=== PATIENT | male | born 1950 | race Caucasian/White ===

== ENCOUNTER 2021-06-10 10:03 | Observation (INO) | payer MEDICARE, SELFPAY ==
[2021-06-10] VITALS (24 sets, daily range): BP systolic 127–171; BP diastolic 80–97; PULSE 87–106; RESP 16–32; TEMP 36.4–37.1; O2SAT 96–98
--- NOTE | 2021-06-10 10:00 | RT.EKG_ITS ---
APPROVED REPORT Exam: Resting ECG Reason for Exam: slurred speech Patient Location: E HR:102 bpm ECG Measurements Heart Rate 102 AXIS AL 152 P 45 QRSd 87 QRS -6 QT 343 T 39 QTc 447 Conclusion Sinus tachycardia. No ST elevation
--- NOTE | 2021-06-10 10:15 | DI.CT_ITS ---
Exam(s) CT HEAD - STROKE PROTOCOL EXAM: CT HEAD - STROKE PROTOCOL CLINICAL HISTORY: slurred speech. TECHNIQUE: Imaging Protocol: Axial computed tomography images with coronal and sagittal reformatted images were created and reviewed COMPARISON: No exams were available for comparison FINDINGS: Ventricles and Extra axial spaces: Normal in size and morphology for the patient's age. Hemorrhage: None. Cerebral parenchyma: Normal. Midline shift: None. Brainstem/Cerebellum: Normal. Calvarium: Normal. Visualized Paranasal sinuses/Mastoids: Clear. Soft Tissues: Unremarkable. IMPRESSION: No acute intracranial process. RADIATION DOSE DELIVERED: 846.35mGy.cm Total DLP DATA REPOSITORY: All CT scans at this facility are submitted to the National Radiology Data Registry (NRDR) Dose Index Registry (DIR) with the [employer] (ACR). RADIATION OPTIMIZATION: All CT scans at this facility use at least one of these dose optimization te chniques: automated exposure control; mA and/or kV adjustment per patient size (includes targeted exa ms where dose is matched to clinical indication); or iterative reconstruction.
--- NOTE | 2021-06-10 10:15 | DI.RAD_ITS ---
Exam(s) XR CHEST 2V PA LATERAL EXAM: XR CHEST 2V PA LATERAL CLINICAL HISTORY: slurred speech TECHNIQUE: 2D digital imaging was performed. COMPARISON: No exams were available for comparison FINDINGS: MEDIASTINUM: Normal. HEART: Normal. PULMONARY VASCULATURE: Normal. LUNGS: Linear scarring or atelectasis is seen in the right lung base. The lungs are otherwise clear. PLEURAL SPACE: No pleural effusion or pneumothorax. BONE:Within normal limits for the patient's age. Status post ACDF in the lower cervical spine. OTHER FINDINGS:There is elevation of the right hemidiaphragm. IMPRESSION: No acute pulmonary findings. DATA REPOSITORY: RADIATION DOSE DELIVERED:
--- NOTE | 2021-06-10 10:22 | ED.GENADUL_ITS ---
Discharge Plan Disposition Patient Disposition: HOME Condition: Stable Discharge Details Clinical Impression: TIA (transient ischemic attack) Primary Care Provider: Unknown,Unknown ED Provider: Mario Purdy Home Meds and New Rx's Prescriptions: No Action omeprazole 40 mg Capsule,Delayed Release(Dr/Ec) 40 mg PO DAILY RF: 0 atorvastatin 10 mg Tablet 10 mg PO DAILY RF: 0 amlodipine-benazepril 5-20 mg Capsule 1 cap PO DAILY RF: 0 Medical Decision Making This is a 70-year-old male with history of hypertension. He lives in [place] and is visiting family in [place]. He notes slurred speech and word finding this morning associated with feeling confused while brushing his teeth and shaving. There was no clumsiness, no focal motor weakness. His family states he has prestranding subtle right facial droop as well as right upper extremity biceps rupture causing discrete right upper extremity weakness. His exam given these prestanding findings is without significant focal deficit. He is hypertensive 171/90 and reports positive symptoms concerning for TIA at home this morning. IV access established, patient placed in a community organizer, chest x-ray, EKG, CT scan of the head. CT and CTA are unremarkable for acute findings, see formal report. Patient remains with very discretely slurred speech but otherwise no focal findings. Given his risk factors of hypercholesterolemia, hypertension, age, I do feel he merits criteria for admission for further management and work-up of TIA. Discussed with the patient and his . HPI General Mode of arrival: ambulatory . Date/Time Provider Initiated Documentation: 06/10/21 10:06 . Limitations to Documentation: no limitations . Information obtained by: patient and family . History of Present Illness 70 year old M presents to the emergency department with the chief complaint of Slurred speech and word finding this morning, described as mild, and is localized to the head and mouth. Patient started experiencing this hour(s) and it has been intermittent. No relieving factors improve symptom(s), No exacerbating factors reported . Patient notes other ([place] confused this morning); denies chest pain, diaphoresis, fever/chills, headaches, nausea/vomiting and weakness. Related Data Home Medications Medication Instructions Recorded Confirmed amlodipine-benazepril 1 cap PO DAILY 06/10/21 06/10/21 atorvastatin 10 mg PO DAILY 06/10/21 06/10/21 omeprazole 40 mg PO DAILY 06/10/21 06/10/21 Allergies Allergy/AdvReac Type Severity Reaction Status Date / Time No Known Allergies Allergy Unverified 06/10/21 10:18 General Stated Complaint: CVA/TIA JUS: 2 Review of Systems Narrative: No fall or headache. No chest pain or difficulty breathing. No clumsiness. No difficulty with gait. Feels slight slurred speech and confusion this morning, denies clumsiness. 8's reviewed and otherwise negative [facility] Social History Smoking/Tobacco Use Status: Former Tobacco Use Smoking risk assessment performed?: Yes Alcohol Intake: current Alcohol Intake frequency: holidays/special occasions only Drug use: Never Substance use type: does not use Details: has not smoked in 20 years Do you feel safe at home: Yes Do you feel safe in your relationship?: Yes Exam Narrative Exam Narrative: GEN: awake, alert, oriented 3. Pleasant, well groomed, interactive. HEAD: Normocephalic, atraumatic ENT: Mucous membranes moist, oropharynx unremarkable, External ear exam unremarkable, slight right facial droop-family states normal EYES: PERRL, EOMI NECK: Full ROM, no BERNICE, no menigismus CHEST/RESP: Nontender, clear to auscultation bilateral, no wheeze/rhonchi/rales CARDIOVASCULAR: RRR, no murmur, rub dyllan. 2+ Rad pulse bilateral ABDOMEN: Soft, nontender, no mass. +Bowel sounds EXT: Full ROM, no edema, no rash, right bicep atrophy, right upper extremity flexion 5-/5, otherwise 5 out of 5 throughout the upper and lower extremity. Neuro: Grossly normal neurologic exam, conversant, interactive. Discrete right facial droop which family states is prestanding. Cranial nerves II through XII otherwise intact. Psych: Speech fluent, thoughts congruent, affect normal Course Vital Signs Vital signs: Vital Signs Temperature 36.7 C 06/10/21 10:10 Pulse 104 H 06/10/21 10:10 Respiratory Rate 24 06/10/21 10:10 Blood Pressure 171/90 H 06/10/21 10:10 Pulse Oximetry 98 06/10/21 10:10 Temperature 36.7 C 06/10/21 10:10 Temperature Source Skin 06/10/21 10:10 Pulse 104 H 06/10/21 10:10 Respiratory Rate 23 06/10/21 10:14 Respiratory Effort 06/10/21 10:18 Blood Pressure 171/90 H 06/10/21 10:10 Pulse Oximetry 98 06/10/21 10:10 Oxygen Delivery Method Room Air 06/10/21 10:10 Oxygen Flow Rate 0 06/10/21 10:10 Pain Level 0 06/10/21 10:10
--- NOTE | 2021-06-10 10:30 | DI.CT_ITS ---
Exam(s) CT BRAIN NECK CTA EXAM: CT BRAIN NECK CTA CLINICAL HISTORY: Slurred speech. TECHNIQUE: Imaging Protocol: Axial CT angiography was performed with multi-slice acquisition and mu lti-planar and/or 3D reconstructions. CONTRAST MATERIAL: Intravenous: Omnipaque 350 Contrast volume:85 mL COMPARISON: CT CT HEAD - STROKE PROTOCOL from 06/10/2021 FINDINGS: CT Head w: Ventricles and Extra axial spaces: Normal in size and morphology for the patient's age. Hemorrhage: None. Cerebral parenchyma: Normal. Midline shift: None. Brainstem/Cerebellum: Normal. Calvarium: Normal. Visualized Paranasal sinuses/Mastoids: Clear. Soft Tissues: Unremarkable. Enhancement: Unremarkable. CTA Neck W: Common Carotid: Right: No dissection, occlusion or significant stenosis. There is mild atherosclerosis at the distal common carotid artery. Left: No dissection, occlusion or significant stenosis. External Carotid: Right: No occlusion or significant stenosis. Left: No occlusion or significant stenosis. There is atherosclerosis at the origin of the left exter nal carotid artery. Internal Carotid: Right: No dissection, occlusion or significant stenosis. Left: No dissection, occlusion or significant stenosis. Vertebral Artery: Right: No dissection, occlusion or significant stenosis. Left: No dissection, occlusion or significant stenosis. Lung Apices: Normal. Bones: The patient status post anterior cervical fusion from C5 through C7. Degenerative changes are seen in the spine. There is straightening of the normal cervical lordosis. Soft Tissues: Normal. The thyroid gland is grossly unremarkable. CTA Brain W: Internal Carotid Arteries: Petrous: Normal. Cavernous: Normal. Cerebral: Normal. Anterior Cerebral Arteries: Right: No aneurysm, occlusion or significant stenosis. Left: No aneurysm, occlusion or significant stenosis. Middle Cerebral Arteries: Right: No aneurysm, occlusion or significant stenosis. Left: No aneurysm, occlusion or significant stenosis. Posterior cerebral Arteries: Right: No aneurysm, occlusion or significant stenosis. The right posterior cerebral artery arises fr om the right posterior communicating artery. This is a normal variant. Left: No aneurysm, occlusion or significant stenosis. Vertebral Arteries: Right: No aneurysm, occlusion or significant stenosis. Left: No aneurysm, occlusion or significant stenosis. Basilar Artery: No aneurysm, occlusion or significant stenosis. IMPRESSION: 1. No large vessel stenosis or occlusion on the CT angiography of the head. 2. Unremarkable contrast CT Head. 3. No evidence of significant stenosis or occlusion on the CT angiography of the neck. RADIATION DOSE DELIVERED: 1,246.34mGy.cm Total DLP DATA REPOSITORY: All CT scans at this facility are submitted to the National Radiology Data Registry (NRDR) Dose Index Registry (DIR) with the [employer] (ACR). RADIATION OPTIMIZATION: All CT scans at this facility use at least one of these dose optimization te chniques: automated exposure control; mA and/or kV adjustment per patient size (includes targeted exa ms where dose is matched to clinical indication); or iterative reconstruction.
[2021-06-10 10:33] LABS: Abs Immature Grans 0.02 10^3/uL (0.0-0.06); Absolute Basophil Count 0.04 10^3/uL (0.0-0.2); Absolute Eosinophil Count 0.04 10^3/uL (0.0-0.7); Absolute Lymphocyte Count 1.43 10^3/uL (1.2-3.4); Basophils % 0.4; Eosinophils % 0.4; HCT 46.2 % (40.0-50.0); HGB 15.5 g/dL (13.5-17.5); Immature Grans % 0.2; Lymphocytes % 15.5; MCH 29.5 pg (27.0-33.0); MCHC 33.5 % (32.0-36.0); MPV 11.5 fL (8.0-11.0); Monocytes % 6.5; Nucleated RBC 0 %; Platelet Count 180 10^3/uL (130-400); RBC 5.25 10^6/uL (4.36-5.78); RDW-SD 38.5 fL; WBC 9.23 10^3/uL (4.4-10.8)
[2021-06-10 10:42] LABS: Bilirubin Negative (Negative); Blood Negative (Negative); Clarity Clear (Clear); Glucose Negative (Negative); Ketones Negative (Negative); Leukocyte Esterase Negative (Negative); Nitrite Negative (Negative); Urobilinogen 0.2 EU/dL (Up TO 0.2)
[2021-06-10 10:49] LABS: Magnesium 1.7 mg/dL (1.8-2.4)
[2021-06-10 10:52] LABS: ALT 43 U/L (16-63); AST 41 U/L (15-37); Albumin 4.5 g/dL (3.4-5.0); Alkaline Phosphatase 53 U/L (46-116); Anion Gap 7.6 mmol/L (3-11); BUN 28 mg/dL (7-18); Bilirubin, Total 0.7 mg/dL (0.2-1.0); CO2 29.4 mmol/L (21.0-32.0); CREATININE 1.2 mg/dL (0.70-1.30); Calcium 8.6 mg/dL (8.5-10.1); Chloride 107 mmol/L (98-107); Glucose 114 mg/dL (74-106); Potassium 4.2 mmol/L (3.5-5.1); Sodium 144 mmol/L (136-145); Total Protein 7.4 g/dL (6.4-8.2)
--- NOTE | 2021-06-10 10:52 | DI.VRAD_ITS ---
PROCEDURE INFORMATION: Exam: CT Head Without Contrast Exam date and time: 06/10/2021 10:22 AM Age: 70 years old Clinical indication: Other: Slurred speech TECHNIQUE: Imaging protocol: Computed tomography of the head without contrast. COMPARISON: No relevant prior studies available. FINDINGS: Brain: Normal. No hemorrhage. Unremarkable white matter. No mass effect. Cerebral ventricles: No ventriculomegaly. Paranasal sinuses: Visualized sinuses are unremarkable. No fluid levels. Mastoid air cells: Visualized mastoid air cells are well aerated. Bones/joints: Unremarkable. No acute fracture. Soft tissues: Unremarkable. IMPRESSION: No acute intracranial abnormality. Dictated and Authenticated by: Shirley Easley MD. Ordering:MIL Martin MD
[2021-06-10 10:54] LABS: Troponin I < 0.05 ng/mL (<0.06)
[2021-06-10] MEDS: Omnipaque 350 MG/ML 100 ML BTL IJ (11:07)
--- NOTE | 2021-06-10 11:10 | DI.VRAD_ITS ---
PROCEDURE INFORMATION: Exam: XR Chest Exam date and time: 06/10/2021 10:22 AM Age: 70 years old Clinical indication: Other: Slurred speech TECHNIQUE: Imaging protocol: XR of the chest. Views: 2 views. COMPARISON: CT BRAIN NECK CTA 06/10/2021 10:50 AM FINDINGS: Lungs: Right basilar atelectasis. Pleural spaces: Unremarkable. No pleural effusion. No pneumothorax. Heart/Mediastinum: Unremarkable. No cardiomegaly. Vasculature: Aorta is tortuous. Diaphragm: Elevation of the right hemidiaphragm. Bones/joints: Status post lower cervical spine fusion. Levoscoliosis of the thoracic spine IMPRESSION: No evidence of acute process. Dictated and Authenticated by: Shirley Easley MD. Ordering:MIL Martin MD
--- NOTE | 2021-06-10 11:18 | DI.VRAD_ITS ---
PROCEDURE INFORMATION: Exam: CT Angiography Head With Contrast, Arteriography Exam date and time: 06/10/2021 10:41 AM Age: 70 years old Clinical indication: Other: Slurred speech TECHNIQUE: Imaging protocol: Computed tomography angiography of the head with contrast. Exam focused on the arteries. 3D rendering (Not supervised by radiologist): MIP and/or 3D reconstructed images were created by the technologist. Contrast material: OMNIPAQUE 350; Contrast volume: 85 ml; Contrast route: INTRAVENOUS (IV); COMPARISON: CT HEAD - STROKE PROTOCOL 06/10/2021 10:37 AM FINDINGS: ANTERIOR CIRCULATION: Right internal carotid artery: Unremarkable. Intracranial segment is patent with no significant stenosis. No aneurysm. Right middle cerebral artery: Unremarkable. No occlusion or significant stenosis. No aneurysm. Right anterior cerebral artery: Unremarkable. No occlusion or significant stenosis. No aneurysm. Left internal carotid artery: Unremarkable. Intracranial segment is patent with no significant stenosis. No aneurysm. Left middle cerebral artery: Unremarkable. No occlusion or significant stenosis. No aneurysm. Left anterior cerebral artery: Unremarkable. No occlusion or significant stenosis. No aneurysm. POSTERIOR CIRCULATION: Right vertebral artery: Unremarkable. No occlusion or significant stenosis. No aneurysm. Left vertebral artery: Unremarkable. No occlusion or significant stenosis. No aneurysm. Basilar artery: Unremarkable. No occlusion or significant stenosis. No aneurysm. Right posterior cerebral artery: Unremarkable. No occlusion or significant stenosis. No aneurysm. Left posterior cerebral artery: Unremarkable. No occlusion or significant stenosis. No aneurysm. Brain: No definite mass, mass effect, or midline shift. Cerebral ventricles: No ventriculomegaly. Bones/joints: Unremarkable. No acute fracture. Soft tissues: Unremarkable. IMPRESSION: No large vessel stenosis or occlusion. PROCEDURE INFORMATION: Exam: CT Angiography Neck With Contrast Exam date and time: 06/10/2021 10:41 AM Age: 70 years old Clinical indication: Other: Slurred speech TECHNIQUE: Imaging protocol: Computed tomography angiography of the neck with contrast. 3D rendering (Not supervised by radiologist): MIP and/or 3D reconstructed images were created by the technologist. Radiation optimization: All CT scans at this facility use at least one of these dose optimization techniques: automated exposure control; mA and/or kV adjustment per patient size (includes targeted exams where dose is matched to clinical indication); or iterative reconstruction. Contrast material: OMNIPAQUE 350; Contrast volume: 85 ml; Contrast route: INTRAVENOUS (IV); COMPARISON: CT HEAD - STROKE PROTOCOL 06/10/2021 10:37 AM FINDINGS: Right common carotid artery: No stenosis. No dissection or occlusion. Right internal carotid artery: No stenosis of the extracranial segment. No dissection or occlusion. Right external carotid artery: No occlusion or stenosis of the origin. Left common carotid artery: No stenosis. No dissection or occlusion. Left internal carotid artery: No stenosis of the extracranial segment. No dissection or occlusion. Left external carotid artery: No occlusion or stenosis of the origin. Right vertebral artery: No stenosis. No dissection or occlusion. Left vertebral artery: No stenosis. No dissection or occlusion. Soft tissues: Normal. No significant soft tissue swelling. Bones/joints: Status post lower cervical spine fusion IMPRESSION: Less than 50% stenosis within the internal carotid arteries bilaterally REFERENCES: NASCET CRITERIA. The degree of internal carotid artery stenosis is based on NASCET criteria. Normal is no stenosis. Mild is less than 50% stenosis. Moderate is 50-69% stenosis. Severe is 70% to 99% stenosis. Total occlusion is no detectable patent lumen. Dictated and Authenticated by: Shirley Easley MD. Ordering:MIL Martin MD
[2021-06-10] MEDS: Aspirin 325 MG TAB PO (11:46)
[2021-06-10 12:05] LABS: Source Nasal/Nares
[2021-06-10] MEDS: Normal Saline 1,000 ML 125 ML IV ×2 (12:53→21:20)
[2021-06-10] MEDS: Enoxaparin 40 MG/0.4 ML SYR SC (12:54)
[2021-06-10 13:09] LABS: COVID-19 PCR Negative (Negative)
[2021-06-10 14:02] LABS: Troponin I < 0.05 ng/mL (<0.06)
[2021-06-10] MEDS: Magnesium Oxide 400 MG TAB PO (14:45)
--- NOTE | 2021-06-10 15:04 | HPE_ITS ---
Date of service: 06/10/21 Time of Service: 15:04 Assessment and Plan Assessment and plan (1) TIA (transient ischemic attack): Start date: 06/10/21 Start time: 15:13 Status: Acute Assessment and plan: Patient does have some slurred speech otherwise all other sx have resolved Will check lipid panel, A1C, MRI for tomorrow Echo with bubble study neuro consult telemetry not currently on asa will start 81 mg daily received 325 in ED (2) Hyperlipidemia: Start date: 06/10/21 Start time: 15:14 Status: Acute Assessment and plan: as above Qualifiers: Hyperlipidemia type: unspecified Qualified Code(s): E78.5 - Hyperlipidemia, unspecified (3) DVT prophylaxis: Start date: 06/10/21 Start time: 15:15 Status: Acute Assessment and plan: enoxaparin (4) Discharge planning issues: Start date: 06/10/21 Start time: 15:15 Status: Acute Assessment and plan: home when medically ready, do not anticipate any services discussed with Dr. Sr History of Present Illness History of Present Illness Chief Complaint: TIA Narrative: 70 y.o male with PMH of HTN, HLD, GERD presented to the ED after having slurred speech and word finding issues while brushing his teeth around approx. 730 this am prompting him to come to the ED. Labs in the ED unremarkable except mag 1.7 repleted with oral supplementation. Urine negative. Brain CT negative for acute findings, chest xray negative, head/neck CTA negative for large vessel stenosis or occlusion. He was asked to be admitted to hospitalist group for further management. He will be admitted to m/[facility] obs telemetery. Lipid panel, A1c, cbc, bmp, mag for am. Echo with bubble study, MRI and Neuro consult placed. Will do neuro checks every 4 hours. At this time he does still have slurred speech other than that all other sx have resolved. He did receive 325 asa in ED, currently on a statin increased to 80 mg. will continue asa 81 mg daily as he was not on one at home. Denies Cp, SOB, N/v/D. Review of Systems All systems reviewed & are unremarkable except as noted in HPI and below PFSH Medical History HTN (hypertension) Hyperlipidemia Social History Smoking/Tobacco Use Status: Former Tobacco Use Smoking risk assessment performed?: Yes Alcohol Intake: current Alcohol Intake frequency: holidays/special occasions only Drug use: Never Substance use type: does not use Details: has not smoked in 20 years Do you feel safe at home: Yes Do you feel safe in your relationship?: Yes Meds Allergies and Home Medications Allergies Allergy/AdvReac Type Severity Reaction Status Date / Time No Known Allergies Allergy Unverified 06/10/21 10:18 Home Medications Medication Instructions Recorded Confirmed Type amlodipine-benazepril 1 cap PO DAILY 06/10/21 06/10/21 History atorvastatin 10 mg PO DAILY 06/10/21 06/10/21 History omeprazole 40 mg PO DAILY 06/10/21 06/10/21 History Exam Const General: cooperative, comfortable and no acute distress Nutritional Appearance: obese Orientation: alert, awake and oriented x3 Eyes Eyelids: eyelids normal Pupils: PERRL EOM: EOM intact bilaterally Neck Neck: normal visual inspection and no JVD Lymphatic: no lymphadenopathy noted Resp Effort & Inspection: normal respiratory effort Auscultation: clear to auscultation bilaterally Cardio Jugular venous pressure: no JVD Rhythm: regular rhythm Heart Sounds: S1 normal GI Auscultation: normal bowel sounds General: No CVA tenderness and deferred Skin General skin exam: no rashes or lesions noted Neuro General: patient alert, patient awake and patient oriented x3 Cognition: normal cognition Speech: abnormal speech and other (slurred) Gait: normal gait Extrem General: normal to inspection, full ROM and no clubbing, cyanosis or edema Results Labs Result diagrams: 06/10/21 10:20 06/10/21 10:20 Labs: Laboratory Results - last 24 hr 06/10/21 06/10/21 06/10/21 10:20 10:20 10:20 WBC 9.23 RBC 5.25 Hgb 15.5 Hct 46.2 MCV 88.0 MCH 29.5 MCHC 33.5 RDW 12.0 Plt Count 180 MPV 11.5 H Immature Gran % 0.2 Neutrophils % 77.0 Lymphocytes % 15.5 Monocytes % 6.5 Eosinophils % 0.4 Basophils % 0.4 Nucleated RBC % 0 Absolute Neutrophils 7.10 H Absolute Lymphocytes 1.43 Absolute Monocytes 0.60 Absolute Eosinophils 0.04 Absolute Basophils 0.04 Sodium 144 Potassium 4.2 Chloride 107 Carbon Dioxide 29.4 Anion Gap 7.6 BUN 28 H Creatinine 1.2 Estimated GFR/1.73 m2 >= 60.00 Glucose 114 H Calcium 8.6 Magnesium 1.7 L Total Bilirubin 0.7 AST 41 H ALT 43 Alkaline Phosphatase 53 Troponin I < 0.05 Total Protein 7.4 Albumin 4.5 Urine Color Urine Clarity Urine pH Ur Specific [place] Urine Protein Urine Ketones Urine Blood Urine Nitrite Urine Bilirubin Urine Urobilinogen Ur Leukocyte Esterase Urine Glucose COVID-19 Source SARS-CoV-2 (PCR) 06/10/21 06/10/21 06/10/21 10:33 12:00 13:33 WBC RBC Hgb Hct MCV MCH MCHC RDW Plt Count MPV Immature Gran % Neutrophils % Lymphocytes % Monocytes % Eosinophils % Basophils % Nucleated RBC % Absolute Neutrophils Absolute Lymphocytes Absolute Monocytes Absolute Eosinophils Absolute Basophils Sodium Potassium Chloride Carbon Dioxide Anion Gap BUN Creatinine Estimated GFR/1.73 m2 Glucose Calcium Magnesium Total Bilirubin AST ALT Alkaline Phosphatase Troponin I < 0.05 Total Protein Albumin Urine Color Yellow Urine Clarity Clear Urine pH 6.0 Ur Specific [place] 1.010 Urine Protein Negative Urine Ketones Negative Urine Blood Negative Urine Nitrite Negative Urine Bilirubin Negative Urine Urobilinogen 0.2 Ur Leukocyte Esterase Negative Urine Glucose Negative COVID-19 Source Nasal/Nares SARS-CoV-2 (PCR) Negative Last Vital Signs Temp 36.6 C 06/10/21 12:44 Pulse 103 H 06/10/21 13:46 Resp 18 06/10/21 12:44 BP 157/80 H 06/10/21 12:44 Pulse Ox 98 06/10/21 12:44
[2021-06-10] MEDS: Atorvastatin 40 MG TAB 80 MG PO (20:41)
[2021-06-11 03:36] VITALS: PULSE 87
[2021-06-11] MEDS: Normal Saline 1,000 ML 125 ML IV (05:30)
[2021-06-11 05:32] VITALS: BP 154/89; PULSE 89; RESP 18; TEMP 37.2; O2SAT 91
[2021-06-11] MEDS: Acetaminophen 325 MG TAB 650 MG PO (05:43)
[2021-06-11 06:59] LABS: Abs Immature Grans 0.01 10^3/uL (0.0-0.06); Absolute Basophil Count 0.04 10^3/uL (0.0-0.2); Absolute Eosinophil Count 0.03 10^3/uL (0.0-0.7); Absolute Lymphocyte Count 1.44 10^3/uL (1.2-3.4); Absolute Neutrophil Count 5.67 10^3/uL (1.2-6.7); Basophils % 0.5; Eosinophils % 0.4; HCT 44.3 % (40.0-50.0); HGB 14.5 g/dL (13.5-17.5); Immature Grans % 0.1; Lymphocytes % 18.7; MCH 28.9 pg (27.0-33.0); MCHC 32.7 % (32.0-36.0); MCV 88.2 fL (80-95); MPV 11.5 fL (8.0-11.0); Monocytes % 6.5; Neutrophils % 73.8; Nucleated RBC 0 %; Platelet Count 169 10^3/uL (130-400); RBC 5.02 10^6/uL (4.36-5.78); RDW-SD 38.5 fL; WBC 7.69 10^3/uL (4.4-10.8)
[2021-06-11 07:00] VITALS: PULSE 87
[2021-06-11 07:16] LABS: Magnesium 1.8 mg/dL (1.8-2.4)
[2021-06-11 07:17] LABS: Anion Gap 10.8 mmol/L (3-11); BUN 19 mg/dL (7-18); CO2 27.2 mmol/L (21.0-32.0); CREATININE 1.2 mg/dL (0.70-1.30); Calcium 8.2 mg/dL (8.5-10.1); Calculated LDL 57 mg/dL (<100); Chloride 107 mmol/L (98-107); Cholesterol 116 mg/dL (<200); Glucose 112 mg/dL (74-106); HDL Cholesterol 36 mg/dL (40-60); Potassium 4.1 mmol/L (3.5-5.1); Sodium 145 mmol/L (136-145); Triglyceride 119 mg/dL (<150)
[2021-06-11 07:43] LABS: Hemoglobin A1C 5.6 % (<5.7)
[2021-06-11] MEDS: Aspirin 81 MG CHEW PO (08:40)
[2021-06-11] MEDS: Magnesium Chloride 64 MG TABCR PO (08:40)
[2021-06-11] MEDS: Omeprazole 20 MG CAPCR 40 MG PO (08:41)
[2021-06-11 08:44] VITALS: BP 157/90; PULSE 102; RESP 18; TEMP 36.8; O2SAT 96
--- NOTE | 2021-06-11 10:00 | DI.US_ITS ---
APPROVED REPORT EXAM: Comprehensive 2D, Doppler, and color-flow Echocardiogram Patient Location: In-Patient Room/Bed: [facility] Magnetizer: Jennie Patino RDCS (AE) Indications: TIA Echo Enhancing Agent Indication: Rule out Shunt Agent(s) / Amount(s) Used: Agitated Saline 24.0 cc Other Information Study Quality: Adequate Conclusion Left Ventricle : The left ventricle is normal size. The left ventricular systolic function is normal. The left ventricular ejection fraction is within the normal range. There is normal left ventricular wall thickness. There is normal LV segmental wall motion. The left ventricular diastolic function is normal. LVEF is 57%. Right Ventricle : The right ventricle is normal size. The right ventricular systolic function is norm al. Atria : The left atrium size is normal. The interatrial septum is intact with no evidence for an atri al septal defect. The right atrium size is normal. Aortic Valve : The aortic valve is normal in structure. Aortic valve is trileaflet. Trace aortic regu rgitation. There is no aortic valvular stenosis. Mitral Valve : The mitral valve is normal in structure. Trace mitral regurgitation. No evidence of mi tral valve stenosis. Great Vessels : The aortic root is normal in size. The ascending aorta is normal in size. Aortic arch is not well visualized. IVC is normal in size and collapses >50% with inspiration. Please see remainder of study for further details. Wall motion Left Ventricle The left ventricle is normal size. The left ventricular systolic function is normal. The left ventric ular ejection fraction is within the normal range. There is normal left ventricular wall thickness. T here is normal LV segmental wall motion. The left ventricular diastolic function is normal. There is no ventricular septal defect visualized. LVEF is 57%. Right Ventricle The right ventricle is normal size. The right ventricular systolic function is normal. Atria The left atrium size is normal. The right atrium size is normal. The interatrial septum is intact wit h no evidence for an atrial septal defect. Aortic Valve The aortic valve is normal in structure. Aortic valve is trileaflet. There is no aortic valvular sten osis. Trace aortic regurgitation. Mitral Valve The mitral valve is normal in structure. No evidence of mitral valve stenosis. Trace mitral regurgita tion. Tricuspid Valve The tricuspid valve is normal in structure. There is no tricuspid valve stenosis. Trace tricuspid reg urgitation. Unable to assess PA pressure. Pulmonic Valve The pulmonary valve is normal in structure. There is no pulmonic valvular stenosis. There is no pulmo [place]incoln valvular regurgitation. Great Vessels The aortic root is normal in size. The ascending aorta is normal in size. Aortic arch is not well vis ualized. IVC is normal in size and collapses >50% with inspiration. Pericardium There is no pericardial effusion. 2D Dimensions IVSD d PLAX 1.02 cm M: 0.6-1.2 LV Vol A2C d MOD 61.8 mL LVPW d PLAX 1.03 cm M: 0.6 - 1.2 LV Vol A4C d MOD 58.0 mL LVID d PLAX 4.23 cm M: 4.2 - 5.8 LA vol/ BSA A2C s A-L 12.7 mL/m2 LVDs 2.85 cm M: 2.5 - 4.0 LA vol/ BSA A4C s A-L 13.8 mL/m2 Ao Root d 2.94 cm M: 3.1 - 3.7 LA Vol/ BSA Biplane s A-L 13.3 mL/m2 RA Area A4C 9.56 cm2 LA Area A4C s MOD 11.12 cm2 RA Vol/ BSA A4C s A-L 9.8 mL/m2 LA Area A2C s MOD 10.59 cm2 Ao Asc Diam d 3.06 cm M: 2.6 - 3.4 LV EF A4C MOD 57.7 % LV EF Teichholz 60.7 % LV EF A2C MOD 57.5 % LVEF (Cárdenas's) 58.42 % M: 52 - 72 LV EF Biplane MOD 58.4 % LV Volume 47.57 mL M: 62 - 150 SV 35.78 mL LV Volume Index 26.42 mL/m2 M: 34 - 74 SV Index 19.80 mL/m2 LV Vol Biplane MOD 61.3 mL FS 32.15 % M-Mode TAPSE 1.69 cm (M/F) >1.7 LV Diastology MV E' medial 0.092 (>0.07 m/s) E/A Ratio 0.9 LV E/e MED 7.40 (<14) MV E Vmax 0.68 (0.4-1.3 m/s) MV E' lateral 0.116 (>0.1 m/s) MV A Vmax 0.80 (0.4-1.3 m/s) LV E/e LAT 5.85 (<14) MV E/A Ratio 0.83 MV E/E' medial 7.44 MV E/E' lateral 5.88 Aortic Valve LVOT Area 2.87 cm2 AoV Area Vmax 2.91 cm2 LVOT Vmax 1.23 m/s AoV Area/ BSA (Vmax) 1.61 cm2/m2 LVOT Mean Manav. 0.76 m/s MARILU Mean Manav. 2.57 cm2 LVOT Peak Grad 6.0 mmHg MARILU Mean Manav. Index 1.42 cm2/m2 LVOT Mean Grad 2.8 mmHg AR DT 2405 msec LVOT VTI 0.213 m AR PHT 697 msec LVOT Diam s 1.90 cm AoV Vmax 1.21 m/s Velocity Ratio 1.01 AoV Mean Manav. 0.85 m/s AoV Peak Grad 5.9 mmHg LVOT SV 60.98 mL AoV Mean Grad 3.2 mmHg AoV VTI 0.215 m AoV Area VTI 2.84 cm2 AoV Area/ BSA (VTI) 1.57 cm/m2 Mitral Valve MV DT 167 (160-240 msec) MV PHT 48 msec MV Area PHT 4.54 cm2 Pulmonary Valve PV Vmax 1.07 (0.5-1.5 m/s) RVOT Peak Gr. 1.57 mmHg PV Peak Grad 4.6 mmHg RVOT Mean Gr. 0.80 mmHg PV Mean Grad 2.4 mmHg RVOT VTI 0.106 m PV VTI 0.166 m RVOT Vmax 0.63 m/s
--- NOTE | 2021-06-11 11:30 | DI.MRI_ITS ---
Exam(s) MR BRAIN WO EXAM: MR BRAIN WO CLINICAL HISTORY: TIA sx, slurred speech, word finding issues TECHNIQUE: Multiplanar multisequence MRI of the brain was performed. COMPARISON: CT CT BRAIN NECK CTA from 06/10/[address] BRAIN NECK CTA from 06/10/2021 FINDINGS: VENTRICLES AND EXTRA AXIAL SPACES: Normal in size and morphology for the patient's age. MIDLINE SHIFT: None. CEREBRAL PARENCHYMA: There is a small area of restricted diffusion involving the left parietal lobe. No space-occupying lesion identified. HEMORRHAGE: None. BRAINSTEM/CEREBELLUM: Normal. CALVARIUM: Normal. VISUALIZED PARANASAL SINUSES/MASTOIDS:Small mucous retention cysts or polyps in the maxillary sinuses . The remaining visualized paranasal sinuses and mastoid air cells are clear. [place]: Normal flow void. PITUITARY GLAND: Unremarkable. OTHER FINDINGS: None. 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 DATA REPOSITORY:
--- NOTE | 2021-06-11 11:41 | INITIAL_ITS ---
- If Service Date Differs Date of service: 06/11/21 Time of Service: 11:41 Care Management Initial Assess REASON FOR HOSPITALIZATION:: TIA PAST MEDICAL HISTORY/PAST SURGICAL HISTORY:: Medical History. HTN (hypertension). Hyperlipidemia PREVIOUS FUNCTIONAL STATUS/SOCIAL/FAMILY SUPPORTS:: Jamari lives in [place] with his . He has one daughter who lives in [place]. He was in [place] visiting family when this incident occured. He is independent at baseline. CURRENT FUNCTIONAL STATUS:: Jamari was sitting up in a chair when CM met with him. He reported that he is hoping to be discharged today. Per report, he had an MRI, echo, and a Neuro consult scheduled today. At the time of the visit, he was only awaiting the Neuro consult, which would determine if he is discharge ready. He reported that he would follow up with his PCP in [place], as he will be returning shortly after his discharge. CM will continue to follow. ADVANCE DIRECTIVES:: Not on file. Pt is not local. Has patient been provided with info about the portal/API?: Yes Did the patient sign up for the portal?: No CODE STATUS:: Full Code INSURANCE COVERAGE / FINANCIAL ISSUES:: [employer] CURRENT HOME/COMMUNITY SERVICES/EQUIPMENT:: No known services or equipment. PRIMARY CARE PHYSICIAN:: No local PCP. POTENTIAL DISCHARGE NEEDS:: Evaluations for further needs, follow up appointments. PATIENT/FAMILY EDUCATION NEEDS:: Review discharge instructions regarding activity levels and medications, discussion of self care needs including ask me three. ANTICIPATED BARRIERS TO DISCHARGE:: No barriers identified at this time. TRANSPORTATION:: Via private vehicle by family. PLAN:: Anticipate Jamari will return home when medically cleared by MD. His family will transport him home via private vehilce. He will follow up with his PCP and discharge plan of care. CM will continue to follow.
[2021-06-11] MEDS: Enoxaparin 40 MG/0.4 ML SYR SC (12:30)
[2021-06-11 15:00] VITALS: PULSE 95
--- NOTE | 2021-06-11 16:36 | DSE_ITS ---
Date of service: 06/11/21 Time of Service: 16:36 DS: Diagnosis Discharge Diagnosis (1) TIA (transient ischemic attack): Start date: 06/11/21 Start time: 16:37 Status: Acute Asessment and Plan: Patient presented with slurred speech that cleared today all other symptoms resolved yesterday. 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 CT with no acute abnormality and Head and neck cta without any large vessel occlusion, Echo with EF 57%, He will need ISMAEL with 30 day event recorder once back at [facility] by his PCP. He was initiated on high dose statin this can be decraeased to 40 mg on discharge and he will be on Aspirin daily life long with plavix x 30 days. He was given loading dose of 300 today per neurology recommendations. He is being discharged home. (2) Hyperlipidemia: Start date: 06/11/21 Start time: 16:44 Status: Acute Asessment and Plan: Triglycerides 119 HDL 36, discussed increasing this number greater than 60, LDl 57 which is good, total cholesterol 116, in setting of stroke however will increase to [address] Sr. Discharge Plan Disposition Patient Disposition: HOME Condition: Stable Discharge Details Reason For Visit: TIA Admit Date/Time: 06/10/21 11:31 Admit Provider: Alondra Sr Attending Provider: Alondra Sr Primary Care Provider: Unknown,Unknown Hospital Course Hospital Course: 70 y.o male with PMH of HTN, HLD, GERD presented to the ED after having slurred speech and word finding issues while brushing his teeth around approx. 730 morining of admission prompting him to come to the ED. Labs in the ED unremarkable except mag 1.7 repleted with oral supplementation. Urine negative. Brain CT negative for acute findings, chest xray negative, head/neck CTA negative for large vessel stenosis or occlusion. He was asked to be admitted to hospitalist group for further management. He will be admitted to [facility] obs telemetery. Lipid panel, A1c, cbc, bmp, mag for am. Echo with bubble study, MRI and Neuro consult placed. Will do neuro checks every 4 hours. Today sx resolved. MRI does reveal left left parietal lobe. Echo revealed ef 65%. He was given loading dose plavix, placed on asa on admission. Neuro recommends he follow up in [facility] and has TTE, with cardiac event recorder through his PCP. Will order asa and plavix for home. He has no residuals. He is not having any difficulty with speech or swallowing. He is being discharged home. Home Meds and New Rx's Prescriptions: New clopidogrel 75 mg Tablet 75 mg PO DAILY Qty: 30 RF: 0 aspirin 81 mg Tablet,Chewable 81 mg PO DAILY Qty: 30 RF: 0 magnesium chloride [Mag 64] 64 mg Tablet,Delayed Release (Dr/Ec) 64 mg PO DAILY Qty: 60 RF: 0 atorvastatin 40 mg tablet 40 mg PO DAILY Qty: 30 RF: 0 Continued omeprazole 40 mg Capsule,Delayed Release(Dr/Ec) 40 mg PO DAILY RF: 0 amlodipine-benazepril 5-20 mg Capsule 1 cap PO DAILY RF: 0 Discontinued atorvastatin 10 mg Tablet 10 mg PO DAILY RF: 0 Discharge Instructions Instructions: Clopidogrel (By mouth), Ischemic Stroke (DC) Additional Instructions: Take aspirin daily Take plavix for only one month but you will need to continue aspirin lifelong discontinue atorvastatin 10 mg and take 40 mg of atorvastatin. This can cause cramping if you continue to have cramping while taking magnesium on this medication you will need to be taken off and placed on something different will defer to your PCP for further management Activity:: Activity as Tolerated Equipment/Supplies:: No Equipment Needed Diet:: Low Sodium Discharge Orders Discharge Orders: Discharge Order (Routine); Ordered 06/11/21 Ordered By: Sandra Queen DS: Summary Time Spent with Patient providing and/or coordinating discharge services: Greater than 30 minutes Status at Discharge Functional status at discharge: independent ambulation Overall status at discharge: patient is back to baseline Mental Status: mental status grossly normal Speech and Movement: speech and movement normal Mood: congruent mood Affect: normal affect Exam Const General: cooperative, comfortable and no acute distress Nutritional Appearance: obese Orientation: alert, awake and oriented x3 Eyes Eyelids: eyelids normal Pupils: PERRL EOM: EOM intact bilaterally Neck Neck: normal visual inspection and no JVD Lymphatic: no lymphadenopathy noted Resp Effort & Inspection: normal respiratory effort Auscultation: clear to auscultation bilaterally Cardio Jugular venous pressure: no JVD Rhythm: regular rhythm Heart Sounds: S1 normal GI Auscultation: normal bowel sounds General: No CVA tenderness and deferred Skin General skin exam: no rashes or lesions noted Neuro General: patient alert, patient awake and patient oriented x3 Cognition: normal cognition Speech: speech normal Gait: normal gait Extrem General: normal to inspection, full ROM and no clubbing, cyanosis or edema Psych Mental Status: mental status grossly normal Speech and Movement: speech and movement normal Mood: congruent mood Affect: normal affect DS: Data Vitals/I&O Vitals and I&O: Vital Signs Temperature 36.8 C 06/11/21 08:44 Temperature Source Temporal Artery Scan 06/11/21 08:44 Pulse 102 H 06/11/21 08:44 Pulse Rhythm Regular 06/11/21 09:00 Pulse 89 06/10/21 12:01 Respiratory Rate 18 06/11/21 08:44 Respiratory Effort Non-Labored 06/11/21 09:00 Respiratory Depth Normal 06/11/21 09:00 Respiratory Pattern Normal 06/11/21 09:00 Blood Pressure 157/90 H 06/11/21 08:44 Blood Pressure Mean 101 06/10/21 12:00 Pulse Oximetry 96 06/11/21 08:44 Oxygen Delivery Method Room Air 06/11/21 08:44 Oxygen Flow Rate 0 06/11/21 08:44 Pain Level 0 06/11/21 08:44 Intake & Output 06/10/21 06/11/21 06/11/21 23:59 11:59 23:59 Intake Total 1450 / 1460 2229.167 / 2719.167 490 / 2719.167 Balance 1450 / 1460 2229.167 / 2719.167 490 / 2719.167 Intake: IV 1010 / 1020 2029.167 / 2028.167 Oral 440 / 440 200 / 690 490 / 690 Other: Urine Color Yellow Yellow Urine Appearance Clear Clear Urine Odor Normal Comment pt voided in toilet pt reports peeing frequently throughout the night due to IV fluids that were running. Voiding Methods Toilet Toilet Data Completed and Pending Completed studies during hospitalization [Text1]: : 2Age: 70 Exam(s) a CT:CT head - stroke protocol Exam(s) CT HEAD - STROKE PROTOCOL EXAM: CT HEAD - STROKE PROTOCOL CLINICAL HISTORY: slurred speech. TECHNIQUE: Imaging Protocol: Axial computed tomography images with coronal and sagittal reformatted images were created and reviewed COMPARISON: No exams were available for comparison FINDINGS: Ventricles and Extra axial spaces: Normal in size and morphology for the patient's age. Hemorrhage: None. Cerebral parenchyma: Normal. Midline shift: None. Brainstem/Cerebellum: Normal. Calvarium: Normal. Visualized Paranasal sinuses/Mastoids: Clear. Soft Tissues: Unremarkable. IMPRESSION: No acute intracranial process. RADIATION DOSE DELIVERED: 846.35mGy.cm Total DLP DATA REPOSITORY: All CT scans at this facility are submitted to the National Radiology Data Registry (NRDR) Dose Index Registry (DIR) with the [employer] (ACR). RADIATION OPTIMIZATION: All CT scans at this facility use at least one of these dose optimization techniques: automated exposure control; mA and/or kV adjustment per patient size (includes targeted exams where dose is matched to clinical indication); or iterative reconstruction. Exam(s) XR CHEST 2V PA LATERAL EXAM: XR CHEST 2V PA LATERAL CLINICAL HISTORY: slurred speech TECHNIQUE: 2D digital imaging was performed. COMPARISON: No exams were available for comparison FINDINGS: MEDIASTINUM: Normal. HEART: Normal. PULMONARY VASCULATURE: Normal. LUNGS: Linear scarring or atelectasis is seen in the right lung base. The lungs are otherwise clear. PLEURAL SPACE: No pleural effusion or pneumothorax. BONE:Within normal limits for the patient's age. Status post ACDF in the lower cervical spine. OTHER FINDINGS:There is elevation of the right hemidiaphragm. IMPRESSION: No acute pulmonary findings. Exam(s) a CT:CT brain & neck CTA Exam(s) CT BRAIN NECK CTA EXAM: CT BRAIN NECK CTA CLINICAL HISTORY: Slurred speech. TECHNIQUE: Imaging Protocol: Axial CT angiography was performed with multi- slice acquisition and multi-planar and/or 3D reconstructions. CONTRAST MATERIAL: Intravenous: Omnipaque 350 Contrast volume:85 mL COMPARISON: CT CT HEAD - STROKE PROTOCOL from 06/10/2021 FINDINGS: CT Head w: Ventricles and Extra axial spaces: Normal in size and morphology for the patient's age. Hemorrhage: None. Cerebral parenchyma: Normal. Midline shift: None. Brainstem/Cerebellum: Normal. Calvarium: Normal. Visualized Paranasal sinuses/Mastoids: Clear. Soft Tissues: Unremarkable. Enhancement: Unremarkable. CTA Neck W: Common Carotid: Right: No dissection, occlusion or significant stenosis. There is mild atherosclerosis at the distal common carotid artery. Left: No dissection, occlusion or significant stenosis. External Carotid: Right: No occlusion or significant stenosis. Left: No occlusion or significant stenosis. There is atherosclerosis at the origin of the left external carotid artery. Internal Carotid: Right: No dissection, occlusion or significant stenosis. Left: No dissection, occlusion or significant stenosis. Vertebral Artery: Right: No dissection, occlusion or significant stenosis. Left: No dissection, occlusion or significant stenosis. Lung Apices: Normal. Bones: The patient status post anterior cervical fusion from C5 through C7. Degenerative changes are seen in the spine. There is straightening of the normal cervical lordosis. Soft Tissues: Normal. The thyroid gland is grossly unremarkable. CTA Brain W: Internal Carotid Arteries: Petrous: Normal. Cavernous: Normal. Cerebral: Normal. Anterior Cerebral Arteries: Right: No aneurysm, occlusion or significant stenosis. Left: No aneurysm, occlusion or significant stenosis. Middle Cerebral Arteries: Right: No aneurysm, occlusion or significant stenosis. Left: No aneurysm, occlusion or significant stenosis. Posterior cerebral Arteries: Right: No aneurysm, occlusion or significant stenosis. The right posterior c erebral artery arises from the right posterior communicating artery. This is a normal variant. Left: No aneurysm, occlusion or significant stenosis. Vertebral Arteries: Right: No aneurysm, occlusion or significant stenosis. Left: No aneurysm, occlusion or significant stenosis. Basilar Artery: No aneurysm, occlusion or significant stenosis. IMPRESSION: 1. No large vessel stenosis or occlusion on the CT angiography of the head. 2. Unremarkable contrast CT Head. 3. No evidence of significant stenosis or occlusion on the CT angiography of the neck. Exam(s) PROCEDURE INFORMATION: Exam: CT Head Without Contrast Exam date and time: 06/10/2021 10:22 AM Age: 70 years old Clinical indication: Other: Slurred speech TECHNIQUE: Imaging protocol: Computed tomography of the head without contrast. COMPARISON: No relevant prior studies available. FINDINGS: Brain: Normal. No hemorrhage. Unremarkable white matter. No mass effect. Cerebral ventricles: No ventriculomegaly. Paranasal sinuses: Visualized sinuses are unremarkable. No fluid levels. Mastoid air cells: Visualized mastoid air cells are well aerated. Bones/joints: Unremarkable. No acute fracture. Soft tissues: Unremarkable. IMPRESSION: No acute intracranial abnormality. Dictated and Authenticated by: Shirley Easley MD. Exam(s) PROCEDURE INFORMATION: Exam: XR Chest Exam date and time: 06/10/2021 10:22 AM Age: 70 years old Clinical indication: Other: Slurred speech TECHNIQUE: Imaging protocol: XR of the chest. Views: 2 views. COMPARISON: CT BRAIN NECK CTA 06/10/2021 10:50 AM FINDINGS: Lungs: Right basilar atelectasis. Pleural spaces: Unremarkable. No pleural effusion. No pneumothorax. Heart/Mediastinum: Unremarkable. No cardiomegaly. Vasculature: Aorta is tortuous. Diaphragm: Elevation of the right hemidiaphragm. Bones/joints: Status post lower cervical spine fusion. Levoscoliosis of the thoracic spine IMPRESSION: No evidence of acute process. Exam(s) PROCEDURE INFORMATION: Exam: CT Angiography Head With Contrast, Arteriography Exam date and time: 06/10/2021 10:41 AM Age: 70 years old Clinical indication: Other: Slurred speech TECHNIQUE: Imaging protocol: Computed tomography angiography of the head with contrast. Exam focused on the arteries. 3D rendering (Not supervised by radiologist): MIP and/or 3D reconstructed images were created by the technologist. Contrast material: OMNIPAQUE 350; Contrast volume: 85 ml; Contrast route: INTRAVENOUS (IV); COMPARISON: CT HEAD - STROKE PROTOCOL 06/10/2021 10:37 AM FINDINGS: ANTERIOR CIRCULATION: Right internal carotid artery: Unremarkable. Intracranial segment is patent with no significant stenosis. No aneurysm. Right middle cerebral artery: Unremarkable. No occlusion or significant stenosis. No aneurysm. Right anterior cerebral artery: Unremarkable. No occlusion or significant stenosis. No aneurysm. Left internal carotid artery: Unremarkable. Intracranial segment is patent with no significant stenosis. No aneurysm. Left middle cerebral artery: Unremarkable. No occlusion or significant stenosis. No aneurysm. Left anterior cerebral artery: Unremarkable. No occlusion or significant stenosis. No aneurysm. POSTERIOR CIRCULATION: Right vertebral artery: Unremarkable. No occlusion or significant stenosis. No aneurysm. Left vertebral artery: Unremarkable. No occlusion or significant stenosis. No aneurysm. Basilar artery: Unremarkable. No occlusion or significant stenosis. No aneurysm. Right posterior cerebral artery: Unremarkable. No occlusion or significant stenosis. No aneurysm. Left posterior cerebral artery: Unremarkable. No occlusion or significant stenosis. No aneurysm. Brain: No definite mass, mass effect, or midline shift. Cerebral ventricles: No ventriculomegaly. Bones/joints: Unremarkable. No acute fracture. Soft tissues: Unremarkable. IMPRESSION: No large vessel stenosis or occlusion. Conclusion Left Ventricle : The left ventricle is normal size. The left ventricular systolic function is normal. The left ventricular ejection fraction is within the normal range. There is normal left ventricular wall thickness. There is normal LV segmental wall motion. The left ventricular diastolic function is normal. LVEF is 57%. Right Ventricle : The right ventricle is normal size. The right ventricular systolic function is normal. Atria : The left atrium size is normal. The interatrial septum is intact with no evidence for an atrial septal defect. The right atrium size is normal. Aortic Valve : The aortic valve is normal in structure. Aortic valve is trileaflet. Trace aortic regurgitation. There is no aortic valvular stenosis. Mitral Valve : The mitral valve is normal in structure. Trace mitral regurgitation. No evidence of mitral valve stenosis. Great Vessels : The aortic root is normal in size. The ascending aorta is normal in size. Aortic arch is not well visualized. IVC is normal in size and collapses >50% with inspiration. Please see remainder of study for further details. Exam(s) MR BRAIN WO EXAM: MR BRAIN WO CLINICAL HISTORY: TIA sx, slurred speech, word finding issues TECHNIQUE: Multiplanar multisequence MRI of the brain was performed. COMPARISON: CT CT BRAIN NECK CTA from 06/10/[address] BRAIN NECK CTA from 06/10/2021 FINDINGS: VENTRICLES AND EXTRA AXIAL SPACES: Normal in size and morphology for the patient's age. MIDLINE SHIFT: None. CEREBRAL PARENCHYMA: There is a small area of restricted diffusion involving the left parietal lobe. No space-occupying lesion identified. HEMORRHAGE: None. BRAINSTEM/CEREBELLUM: Normal. CALVARIUM: Normal. VISUALIZED PARANASAL SINUSES/MASTOIDS:Small mucous retention cysts or polyps in the maxillary sinuses. The remaining visualized paranasal sinuses and mastoid air cells are clear. [place]: Normal flow void. PITUITARY GLAND: Unremarkable. OTHER FINDINGS: None. 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 Labs on day of discharge: Labs from last 24 hours 06/11/21 06/11/21 06/11/21 06:43 06:43 06:43 WBC 7.69 RBC 5.02 Hgb 14.5 Hct 44.3 MCV 88.2 MCH 28.9 MCHC 32.7 RDW 12.0 Plt Count 169 MPV 11.5 H Immature Gran % 0.1 Neutrophils % 73.8 Lymphocytes % 18.7 Monocytes % 6.5 Eosinophils % 0.4 Basophils % 0.5 Nucleated RBC % 0 Absolute Neutrophils 5.67 Absolute Lymphocytes 1.44 Absolute Monocytes 0.50 Absolute Eosinophils 0.03 Absolute Basophils 0.04 Sodium Potassium Chloride Carbon Dioxide Anion Gap BUN Creatinine Estimated GFR/1.73 m2 Glucose Hemoglobin A1c 5.6 Calcium Magnesium 1.8 Triglycerides Total Cholesterol LDL Cholesterol, Calc HDL Cholesterol 06/11/21 06:43 WBC RBC Hgb Hct MCV MCH MCHC RDW Plt Count MPV Immature Gran % Neutrophils % Lymphocytes % Monocytes % Eosinophils % Basophils % Nucleated RBC % Absolute Neutrophils Absolute Lymphocytes Absolute Monocytes Absolute Eosinophils Absolute Basophils Sodium 145 Potassium 4.1 Chloride 107 Carbon Dioxide 27.2 Anion Gap 10.8 BUN 19 H D Creatinine 1.2 Estimated GFR/1.73 m2 >= 60.00 Glucose 112 H Hemoglobin A1c Calcium 8.2 L Magnesium Triglycerides 119 Total Cholesterol 116 LDL Cholesterol, Calc 57 HDL Cholesterol 36 L PFSH Medical History HTN (hypertension) Hyperlipidemia Social History Smoking/Tobacco Use Status: Former Tobacco Use Smoking risk assessment performed?: Yes Alcohol Intake: current Alcohol Intake frequency: holidays/special occasions only Drug use: Never Substance use type: does not use Details: has not smoked in 20 years Do you feel safe at home: Yes Do you feel safe in your relationship?: Yes
[2021-06-11] MEDS: Clopidogrel 300 MG TAB PO (16:40)
--- NOTE | 2021-06-11 16:53 | W.NEUROCONSU ---
Date of service: 06/11/21 Time of Service: 16:53 Assessment and Plan Assessment and plan (1) Stroke due to embolism of left middle cerebral artery: Status: Acute Assessment and plan: Mr. Hall is a 70 year-old, right-handed man who was admitted for: #1. Acute ischemic stroke of the left parietal/posterior frontal cortex, manifested by dysarthria, expressive aphasia, right face weakness, and right arm/hand weakness vs clumsiness. His symptoms have all resolve.d Etiology is currently unknown, but favor embolic over thrombotic. I recommend further work-up including urgent ISMAEL and extended 30-day cardiac monitoring. He is anxious to get back home to [facility] and so I will contact PCP to help facilitate these studies there (I left VM at office today - was already after hours). Otherwise, start clopidogrel 300mg x 1 now. ADRs discussed with him. He should continue clopidogrel 75mg daily + aspirin 81mg daily x 30 days, after which he can stop clopidogrel and continue aspirin 81mg daily alone. Ok to reduce atorvastatin back to pre-admission dose of 10mg daily. Secondary stroke prevention goals: Goal LDL <70. Goal SBP 120-140. Goal A1c <7. We discussed diet and exercise changes to reduce stroke risk. We discussed increased risk of depression/anxiety following stroke. I recommend postponing cataract surgery for now. All of this was discussed with him and his . They are in agreement to plan. He will also need referral to neurology locally. He has my card and so can call if there are any concerns. PCP Dr. Dustin Lepe in [place], [place] History of Present Illness History of Present Illness Chief Complaint: stroke Narrative: Handedness: right. HPI: Mr. Hall is a 70 year-old man with hypertension, hyperlipidemia, and GERD. He is from [place], in town visiting family. Soon after awaking on 06/10/21, noted right hand/arm clumsiness, right face weakness, dysarthria, and expressive aphasia. His right arm clumsiness was complicated by baseline biceps tendon tear and prior wrist injury resulting in ADM atrophy and hand weakness. He was not given tPA due to being outside of the time window. His right arm symptoms resolved by the afternoon, same day. His speech was noted back to baseline upon awakening this am. Initial BP was 171/80. He notes BP has been running high - started on a new BP medication ~3 months ago. He was admitted for further work-up below. Given 325mg ASA in ER and continued on ASA 81mg daily by hospitalist (he was not on this prior to admission). Atorvastatin was increased from 10mg daily to 80mg daily. He has a family history of heart disease in his father and brother. No strokes. He quit smoking 30+ years ago. He has had intermittent episodes of racing heart, but attributed this to being high strung. He is currently undergoing work-up to have cataracts removed. Work-up: -CTH (06/10/21): no acute findings. I reviewed these images personally and this is my personal interpretation. -CTA head/neck (06/10/21): no significant stenosis. Small amount of plaque around L ICA. I reviewed these images personally and this is my personal interpretation. -MRI brain (06/11/21): acute left cortical parietal/posterior frontal ischemic stroke with a few areas of punctate ischemic in the high medial cortex. Noted old L cerebellar microhemorrhage. I reviewed these images personally and this is my personal interpretation. -LDL 57 -A1c 5.6 -TTE (06/11/21): EF 57%, no wall motion abnormalities. LA normal. Bubble not done. Consults Requesting physician: Sandra Queen Review of Systems All systems reviewed & are unremarkable except as noted in HPI and below PFSH Medical History HTN (hypertension) Hyperlipidemia Social History Smoking/Tobacco Use Status: Former Tobacco Use Smoking risk assessment performed?: Yes Alcohol Intake: current Alcohol Intake frequency: holidays/special occasions only Drug use: Never Substance use type: does not use Details: has not smoked in 20 years Do you feel safe at home: Yes Do you feel safe in your relationship?: Yes Visit Medication and Allergies Active Medications Generic Name Dose Route Start Last Admin Trade Name Freq PRN Reason Stop Dose Admin Acetaminophen 650 mg 06/11/21 05:35 06/11/21 05:43 Acetaminophen 325 Mg Tab PO 650 mg Q6H PRN PRN Administration Aspirin 81 mg 06/11/21 08:30 06/11/21 08:40 Aspirin 81 Mg Chew PO 81 mg DAILY DAYO Administration Atorvastatin Calcium 80 mg 06/10/21 20:00 06/10/21 20:41 Atorvastatin 40 Mg Tab PO 80 mg QPM DAYO Administration Clopidogrel Bisulfate 75 mg 06/12/21 08:30 Clopidogrel 75 Mg Tab PO DAILY DAYO Dimethicone/Zinc Oxide 0 gm 06/10/21 11:30 Sara Protect Cream 142 Gm Tube TP PRN PRN Enoxaparin Sodium 40 mg 06/10/21 12:00 06/11/21 12:30 Enoxaparin 40 Mg/0.4 Ml Syr SC 40 mg Q24H DAYO Administration IV Miscellaneous Supplies 1 each 06/10/21 10:30 Iv Access IV DIRECTED DAYO Magnesium Chloride 64 mg 06/11/21 08:30 06/11/21 08:40 Magnesium Chloride 64 Mg Tabcr PO 64 mg DAILY DAYO Administration Omeprazole 40 mg 06/11/21 07:30 06/11/21 08:41 Omeprazole 20 Mg Capcr PO 40 mg DAILY@0730 DAYO Administration Polyethylene Glycol 17 gm 06/10/21 11:30 Polyethylene Glycol 3350 17 Gm Packet PO DAILY PRN PRN Constipation Sodium Chloride 0 ml 06/10/21 10:20 Normal Saline Flush 10 Ml Syr IVP PRN PRN Allergies No Known Allergies Allergy (Unverified 06/10/21 10:18) Exam Narrative Exam Narrative: Physical Exam: Gen: Patient of apparent stated age, NAD Head and face: no facial or cranial abnormalities Neck: Supple, no meningismus, no occipital tenderness CV: + S1, S2, RRR, no murmur Resp: CTA B/L Abd: soft, nontender, nondistended Ext: No edema. No clubbing or cyanosis. No bony deformity. Neuro Exam: Language: fluency, naming, repetition, and comprehension intact; Mental Status: AAOx3, current events intact, fund of knowledge intact; Speech: no dysarthria Cranial nerves: Funduscopy: not performed CN II: visual greer intact CN III, IV, : extraocular movements intact, no nystagmus, pupils symmetric and reactive to light CN V: face sensation intact to LT and PP CN VII: ?subtle right face weakness CN VIII: hearing intact bilaterally CN IX, X: palate rises symmetrically CN XI: trapezius/SCM 5/5 bilaterally CN XII: protrudes tongue symmetrically Sensory: intact to LT, PP, vibration, and joint position in all extremities, absent Romberg Motor: Tone intact. R APB atrophy with R biceps tendon tear. Fine motor movements reduced on the right. No pronator drift. Strength 5/5 throughout including the deltoids, biceps, triceps, wrist extensors, hip flexors, knee flexors, knee extensors, ankle flexors, and ankle extensors. Reflexes: hyporeflexic throughout; toes neutral bilaterally; Coordination: FTN and HTS intact bilaterally Gait: normal gait; Results Last Vital Signs Temp 36.8 C 06/11/21 08:44 Pulse 102 H 06/11/21 08:44 Resp 18 06/11/21 08:44 BP 157/90 H 06/11/21 08:44 Pulse Ox 96 06/11/21 08:44 Labs Result diagrams: 06/11/21 06:43 06/11/21 06:43 Labs: Laboratory Results - last 24 hr 06/11/21 06/11/21 06/11/21 06:43 06:43 06:43 WBC RBC Hgb Hct MCV MCH MCHC RDW Plt Count MPV Immature Gran % Neutrophils % Lymphocytes % Monocytes % Eosinophils % Basophils % Nucleated RBC % Absolute Neutrophils Absolute Lymphocytes Absolute Monocytes Absolute Eosinophils Absolute Basophils Sodium 145 Potassium 4.1 Chloride 107 Carbon Dioxide 27.2 Anion Gap 10.8 BUN 19 H D Creatinine 1.2 Estimated GFR/1.73 m2 >= 60.00 Glucose 112 H Hemoglobin A1c 5.6 Calcium 8.2 L Magnesium 1.8 Triglycerides 119 Total Cholesterol 116 LDL Cholesterol, Calc 57 HDL Cholesterol 36 L 06/11/21 06:43 WBC 7.69 RBC 5.02 Hgb 14.5 Hct 44.3 MCV 88.2 MCH 28.9 MCHC 32.7 RDW 12.0 Plt Count 169 MPV 11.5 H Immature Gran % 0.1 Neutrophils % 73.8 Lymphocytes % 18.7 Monocytes % 6.5 Eosinophils % 0.4 Basophils % 0.5 Nucleated RBC % 0 Absolute Neutrophils 5.67 Absolute Lymphocytes 1.44 Absolute Monocytes 0.50 Absolute Eosinophils 0.03 Absolute Basophils 0.04 Sodium Potassium Chloride Carbon Dioxide Anion Gap BUN Creatinine Estimated GFR/1.73 m2 Glucose Hemoglobin A1c Calcium Magnesium Triglycerides Total Cholesterol LDL Cholesterol, Calc HDL Cholesterol
[2021-06-11 17:00] VITALS: PULSE 92
--- NOTE | 2021-06-11 17:00 | PDOC.CMDIS ---
- If Service Date Differs Date of service: 06/11/21 Time of Service: 17:00 LACE Index Scoring Tool - Questions: Length of Stay (in days): 1 Acuity (Admit via E.D.?): Yes E.D. Visits: 1 - Answers: Total Score: 5 Risk of Readmission: Low Risk Care Management Discharge Reason for Hospitalization: TIA Discharge Plan: Jamari will return home with no services at this time. His will drive him home via private vehicle. He will follow up with his PCP and discharge plan of care. He is happy to be going home. Patient/Family Education Needs: Review discharge instructions regarding activity levels and medications, discussion of self care needs including ask me three.
--- NOTE | 2021-06-12 15:02 | NT_ITS ---
Date of service: 06/12/21 Time of Service: 15:02 PT Notes Visit Reasons: TIA (cardiology) Referral sent in on 06/10/2021 at 11:34 AM. No inpatient PT coverage on 06/11/2021. Per verbal consultation with referring [employer]PERATIONS INTELLIGENCE by HEARING CARE PRACTITIONER on 06/11/2021, patient's discharge to home is non-PT dependent. No skilled services were provided for this admission. Thank you for the opportunity to participate in the care of this patient. Gregoria Alva PT, DPT, CLT [facility] [place], [place]
== END 2021-06-11 17:32 | disposition home or self-care (01) ==
LOC: ER 11:55 → MS 12:41
PROVIDERS: Nurse Practitioner Family; Admitting Provider Internal Medicine; Emergency Provider Emergency Medicine; Visit Provider Internal Medicine
DX: G45.9 Transient cerebral ischemic attack, unspecified (principal); E78.5 Hyperlipidemia, unspecified; Z20.822 Contact with and (suspected) exposure to COVID-19; I10 Essential (primary) hypertension; K21.9 Gastro-esophageal reflux disease without esophagitis; R47.81 Slurred speech; Z87.891 Personal history of nicotine dependence
CPT/HCPCS: 36415; 36416; 70496; 70498; 80048; 80053; 80061; 82962; 87635; 93005; 93306; 99215; 99285; J1650; 70450; 70551; 71046; 81003; 83036; 83735; 84484; 85025; 93010; 99217; 99220; G0378; J3490